=== PATIENT | male | born 1975 | race Caucasian/White ===

== ENCOUNTER 2020-06-09 17:03 | Emergency (ER) | payer SELFPAY | END 2020-06-09 18:44 | disposition home or self-care (01) | LOC: BURERS 17:03 | DX: E86.0 Dehydration (principal); R11.0 Nausea; F41.9 Anxiety disorder, unspecified; F31.9 Bipolar disorder, unspecified; F20.9 Schizophrenia, unspecified; F17.210 Nicotine dependence, cigarettes, uncomplicated | CPT/HCPCS: 99281 ==